=== PATIENT | female | born 1995 | race Caucasian/White ===

== ENCOUNTER 2022-07-06 10:32 | Emergency (ER) | payer OTHER ==
[~2022-07-06] VITALS: Ht 152.4 cm; Wt 49.9 kg
[2022-07-06 11:02] LABS: Source, Urine Clean Catch
[2022-07-06 11:06] LABS: Appearance, Urine Clear (Clear); Bilirubin, Urine Neg (Neg); Blood, Urine Neg (Neg); Color, Urine Yellow (P-Yellow); Glucose Qualitative, Urine Neg (Neg); Ketones, Urine 3+ (Neg); Leukocyte Esterase, Urine Neg (Neg); Nitrite, Urine Neg (Neg); Protein, Urine 2+ (Neg); Specific Gravity, Urine 1.025 (1.003-1.022); Urobilinogen, Urine NORM (Normal)
[2022-07-06 11:15] LABS: BASOPHILS ABSOLUTE AUTO 0.02 K/mm3 (0.00-0.23); BASOPHILS PERCENT AUTO 0 % (0-2); EOSINOPHILS ABSOLUTE AUTO 0.01 K/mm3 (0.00-0.68); EOSINOPHILS PERCENT AUTO 0 % (0-6); Hematocrit 37.6 % (33.0-51.0); IMMATURE GRAN ABSOLUTE AUTO 0.04 K/mm3 (0.00-0.10); IMMATURE GRAN PERCENT AUTO 0 % (0-1); LYMPHOCYTES ABSOLUTE AUTO 1.64 K/mm3 (0.84-5.20); LYMPHOCYTES PERCENT AUTO 14 % (21-46); MONOCYTES PERCENT AUTO 3 % (4-13); Mean Corpuscular HGB 24.6 pg (26.0-34.0); Mean Corpuscular HGB Conc 31.9 g/dL (31.5-36.5); Mean Corpuscular Volume 77 fL (80-100); Mean Platelet Volume 11.6 fL (9.1-12.4); NEUTROPHILS ABSOLUTE AUTO 10.03 K/mm3 (1.96-9.15); NEUTROPHILS PERCENT AUTO 83 % (41-73); Platelet Count 307 K/mm3 (150-400); RDW Coefficient Variation 16.6 % (11.7-14.2); RDW Standard Deviation 46.6 fL (35.1-46.3); Red Blood Cell Count 4.87 M/mm3 (3.80-5.20); White Blood Cell Count 12.14 K/mm3 (4.00-11.30)
[2022-07-06 11:35] LABS: Albumin, Blood 4.2 g/dL (3.4-5.0); Bilirubin, Total 0.4 mg/dL (0.1-1.0); Bun/Creatinine Ratio 12.7 (12.0-20.0); Creatinine, Blood 0.71 mg/dL (0.40-1.00); Globulin, Blood 4.1 g/dL (2.2-4.0); Potassium, Blood 3.8 mmol/L (3.5-5.5); Total Protein, Blood 8.3 g/dL (6.4-8.2)
[2022-07-06 11:49] LABS: Bacteria Few /hpf; Red Blood Cells, Urine 0-2 /hpf (0-2); Squamous Epithelial Cells Mod /hpf (Few); White Blood Cells, Urine 0-2 /hpf (0-5)
[2022-07-06] MEDS ORDERED: IBUP600 PO (14:11)
== END 2022-07-06 14:45 | disposition home or self-care (01) ==
LOC: ER 10:32
PROVIDERS: Emergency Medicine
DX: R10.2 Pelvic and perineal pain (principal); D72.829 Elevated white blood cell count, unspecified
CPT/HCPCS: 74177; 76856; 80053; 81001; 81025; 83690; 85025; J1885; J2270; J2405; Q9967

== ENCOUNTER → 2024-03-31 | Outpatient (CLI) | payer OTHER ==
[~2024-03-31] MED LIST: IBUP600 PO
== END | disposition home or self-care (01) ==
LOC: LAB 09:36 → LAB SHORT 09:36
DX: N39.0 Urinary tract infection, site not specified (principal)
CPT/HCPCS: 87077; 87086; 87186

== ENCOUNTER 2024-06-05 06:51 | Day surgery (SDC) | payer OTHER ==
[~2024-06-05] VITALS: Ht 154.9 cm; Wt 51.5 kg
[~2024-06-05 06:51] MED LIST changes: +Lactated Ringer's 1,000 ML IV ONE
[2024-06-05] MEDS ORDERED: Ketorolac Tromethamine 30mg Vial ONE (07:21)
[2024-06-05] MEDS ORDERED: Rocuronium Bromide 10 MG/ML 5ML Injection IV ONE (07:21)
[2024-06-05] MEDS ORDERED: propofoL 20 ML IV ONE (07:21)
[2024-06-05] MEDS ORDERED: Ondansetron HCl 2 MG / ML 2ML Vial ONE ×2 (07:21→09:50)
[2024-06-05] MEDS ORDERED: Dexamethasone Sod Phos 10 MG/ML 1ML VIAL ONE (07:21)
[2024-06-05] MEDS ORDERED: FentaNYL Citrate 50 MCG/ML 2 ML Injection ONE ×2 (07:21→09:43)
[2024-06-05] MEDS ORDERED: CeFAZolin Sodium 2,000 MG VIAL ONE (07:26)
[2024-06-05] MEDS ORDERED: NS 50 ML IV ONE (07:26)
[2024-06-05] MEDS ORDERED: ENZYME (07:34)
[2024-06-05] MEDS ORDERED: Lactated Ringer's 1,000 ML IV ONE (07:49)
[2024-06-05] MEDS ORDERED: Sugammadex Sodium 200 MG/2ML SDV (100 MG/ML) ONE (08:00)
[2024-06-05] MEDS ORDERED: Ropivacaine 0.5% HCL/PF 5 MG/ML 30ML Vial ONE (08:29)
[2024-06-05] MEDS ORDERED: EPINEPhrine HCl 1 MG/ML 1ML Amp XX ONE (08:58)
--- NOTE | 2024-06-05 09:32 | NUR ---
06/05/24 0932 Nan Gutierrez CATHETER REMOVED AT 0930.
--- NOTE | 2024-06-05 09:53 | NUR ---
06/05/[address] AT BEDSIDE, GAVE PT 30MG OF TORADOL VIA IV, PUSHED SLOWLY. TORADOL GIVEN AT 0950. PT STATED THAT HER PAIN LEVEL WAS AT A 5/10. 0952: PT STATED THAT SHE WAS FEELING NAUSEATED. 4MG OF ZOFRAN GIVEN THROUGH IV SLOWLY. WCTM.
[2024-06-05] MEDS ORDERED: OxyCODONE 5 mg/Acetamin 325 mg TABLET ONE (10:43)
[2024-06-05 10:53] VITALS: BP 101/63
--- NOTE | 2024-06-05 10:54 | NUR ---
06/05/24 1054 Ramona Felix PT ABLE TO TOLERATE SNACK JUST FINE. PO PERCOCET 5/325MG GIVEN. PT DOING WELL. VSS. WCTM.
== END 2024-06-05 11:09 | disposition home or self-care (01) ==
LOC: ORSCSDS 06:51
PROVIDERS: Obstetrics & Gynecology
PROC: 0UT74ZZ Resection of Bilateral Fallopian Tubes, Percutaneous Endoscopic Approach (ICD-10-PCS; principal; 2024-06-05 08:30)
DX: Z30.2 Encounter for sterilization (principal)
CPT/HCPCS: 88302; A9270; J0171; J0690; J1100; J1885; J2405; J2704; J2795; J3010; J7120